=== PATIENT | female | born 1960 | race Native Hawaiian/Other Pacific Islander ===

== ENCOUNTER 2017-09-01 09:18 | Outpatient (CLI) | payer BC | END 2017-09-01 19:17 | disposition home or self-care (01) | LOC: MAMMO 09:18 | DX: Z12.31 Encounter for screening mammogram for malignant neoplasm of breast (principal) ==

== ENCOUNTER 2018-11-29 13:46 | Outpatient (CLI) | payer BC | END 2018-11-29 19:58 | disposition home or self-care (01) | LOC: LABW 13:46 | DX: K64.0 First degree hemorrhoids (principal) | CPT/HCPCS: 82272 ==

== ENCOUNTER 2019-11-19 09:00 | Outpatient (CLI) | payer BC | END 2019-11-19 19:45 | disposition home or self-care (01) | LOC: RAD 09:00 | DX: N95.9 Unspecified menopausal and perimenopausal disorder (principal) ==

== ENCOUNTER 2022-01-25 09:15 | Outpatient (CLI) | payer BC | END 2022-01-25 18:59 | disposition home or self-care (01) | LOC: RAD 09:15 | PROVIDERS: ATTEND Nurse Practitioner Family | DX: E55.9 Vitamin D deficiency, unspecified (principal); E56.8 Deficiency of other vitamins; M05.79 Rheumatoid arthritis with rheumatoid factor of multiple sites without organ or systems involvement; M35.01 Sjogren syndrome with keratoconjunctivitis; Z79.899 Other long term (current) drug therapy ==

== ENCOUNTER 2022-03-09 07:57 | Outpatient (CLI) | payer BC | END 2022-03-09 19:10 | disposition home or self-care (01) | LOC: RESP 07:57 | PROVIDERS: ATTEND Nurse Practitioner Family | DX: M05.79 Rheumatoid arthritis with rheumatoid factor of multiple sites without organ or systems involvement (principal); M06.4 Inflammatory polyarthropathy; M35.01 Sjogren syndrome with keratoconjunctivitis ==

== ENCOUNTER 2022-03-23 13:19 | Outpatient (CLI) | payer BC | END 2022-03-23 19:44 | disposition home or self-care (01) | LOC: RESP 13:19 | PROVIDERS: ATTEND Nurse Practitioner Family | DX: M05.79 Rheumatoid arthritis with rheumatoid factor of multiple sites without organ or systems involvement (principal); M35.01 Sjogren syndrome with keratoconjunctivitis; R07.89 Other chest pain; Z79.899 Other long term (current) drug therapy ==

== ENCOUNTER 2022-08-10 10:21 | Outpatient (CLI) | payer BC | END 2022-08-10 23:59 | disposition home or self-care (01) | LOC: CT 10:21 | PROVIDERS: ATTEND Internal Medicine | DX: R55 Syncope and collapse (principal); R42 Dizziness and giddiness; R51.9 Headache, unspecified ==

== ENCOUNTER 2023-03-07 07:47 | Outpatient (CLI) | payer BC | END 2023-03-07 18:53 | disposition home or self-care (01) | LOC: US 07:47 | PROVIDERS: ATTEND Physician Assistant | DX: R10.13 Epigastric pain (principal) ==

== ENCOUNTER 2023-07-14 09:47 | Outpatient (CLI) | payer OTHER | END 2023-07-14 19:23 | disposition home or self-care (01) | LOC: MAMMO 09:47 | PROVIDERS: ATTEND Physician Assistant | DX: Z12.31 Encounter for screening mammogram for malignant neoplasm of breast (principal) ==